=== PATIENT | female | born 1955 | race Caucasian/White ===

== ENCOUNTER → 2016-09-20 | Outpatient (CLI) | payer OTHER, MEDICAID ==
[2014-05-12 12:28] VITALS: BP 142/85
--- NOTE | 2016-09-20 12:36 | RAD ---
HISTORY: Upper back pain Study: Thoracic spine series Comparison: None Findings: The upper thoracic spine is obscured on the lateral view by overlying structures. Visualized thoraci c vertebral body heights and alignment appear normal. No acute fracture or subluxation is identified . There is mild multilevel degenerative disk disease, greatest within the mid thoracic spine. Surrou nding soft tissues appear normal. IMPRESSION: Mild multilevel degenerative disc disease of the thoracic spine without acute osseous abnormality id entified. Reported By:
--- NOTE | 2016-09-20 12:37 | RAD ---
History: Cough and history of lung cancer Study: PA and lateral chest Comparison: June 23, 2015 Findings: The lungs are clear. There is elevation of the right hilum and fullness of the right hilum measuring over 3 centimeters diameter. The left hilum is unremarkable. The heart size is normal. Th ere is no pleural effusion and no bony abnormality is demonstrated. Impression: Elevated right hilum with suggestion of right hilar adenopathy. Recommend consideration of CT of the thorax with IV contrast. Reported By:
--- NOTE | 2016-09-20 12:39 | RAD ---
HISTORY: Lower back pain Study: Lumbar spine series Comparison: None Findings: Lumbar spine alignment and vertebral body heights appear normal. No acute fracture or subluxation is identified. There is moderate degenerative disc disease at L5-S1 with disc space narrowing, disk va cuum phenomenon and endplate sclerosis. Mild-moderate multilevel facet arthropathy is also seen, gre atest caudally. SI joints appear normal. There is atherosclerotic calcification of the abdominal aorta without aneur ysm. IMPRESSION: 1. Moderate degenerative disc disease and facet arthropathy of the lumbosacral spine, greatest at L 5-S1. Reported By:
--- NOTE | 2016-09-20 12:43 | RAD ---
HISTORY: Chronic neck pain, history of lung cancer Study: Cervical spine series Comparison: None Findings: There is straightening of the cervical spine, likely related to patient positioning. Alignment other thacker appears normal. No acute fracture, subluxation or destructive osseous lesion is identified. The re is mild multilevel degenerative disk disease, greatest within the mid cervical spine. Prevertebra l soft tissues appear normal. IMPRESSION: 1. Mild degenerative changes of the cervical spine as above, without acute or aggressive osseous ab normality. Reported By:
== END | disposition home or self-care (01) | DRG 552 ==
LOC: RAD 11:33
PROVIDERS: ATTEND Internal Medicine
DX: M54.2 Cervicalgia (principal); M54.5 Low back pain; M51.34 Other intervertebral disc degeneration, thoracic region; M51.37 Other intervertebral disc degeneration, lumbosacral region
CPT/HCPCS: 71020; 72040; 72072; 72100